=== PATIENT | male | born 1965 ===

== ENCOUNTER 2020-07-11 10:46 | Emergency (ER) | payer OTHER ==
[~2020-07-11] VITALS: Ht 182.9 cm; Wt 131.5 kg
--- NOTE | 2020-07-11 11:12 | NUR ---
ED Nurse Note: pt was lifting heavy box at work last friday and since then having lower back pain radiating to left hip. pt wishes to have a work not stating modified work
[2020-07-11 11:25] VITALS: BP 129/74
[2020-07-11] MEDS ORDERED: ROBAXIN-750750 MG PO (11:25)
--- NOTE | 2020-07-11 11:27 | NUR ---
ER DISCHARGE NOTE: Patient is cleared to be discharged per ERMD, pt is aox4, on room air, with stable vital signs. pt was given dc and prescription instructions, pt was able to verbalize understanding, pt id band removed. pt is able to ambulate with steady gait. pt took all belongings.
--- NOTE | 2020-07-11 11:29 | Emergency Room Report ---
History of Present Illness General Chief Complaint: Lower Back Pain or Injury Source: Patient Present Illness HPI Patient is a 55-year-old male denies any significant past medical history presents to the ER complaining of lower back spasm. 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 He states that since then he has had spasms to the right side of his back. He denies any fever or chills. He denies any history of IV drug use. He denies any focal weakness. He denies any inability to walk. He denies any changes to his bowel or bladder habits. Patient states that he takes some ibuprofen for the pain which improves it. Allergies: Coded Allergies: No Known Allergies (Unverified , 07/11/20) COVID-19 Screening Contact w/high risk pt: No Experienced COVID-19 symptoms?: No COVID-19 Testing performed [employer]: Yes COVID-19 Screening: Negative COVID-19 COVID-19 Testing Source: nasal Patient History Reviewed Nursing Documentation: PMH: Agreed; PSxH: Agreed Nursing Documentation-PMH Past Medical History: No History, Except For Review of Systems All Other Systems: negative except mentioned in HPI Physical Exam Vital Signs Date Time Temp Pulse Resp B/P (MAP) Pulse Ox O2 Delivery O2 Flow Rate FiO2 07/11/20 11:10 98.4 75 16 129/74 (92) 98 Room Air Sp02 EP Interpretation: reviewed, normal General Appearance: no apparent distress, alert, GCS 15, non-toxic Head: normocephalic, atraumatic Eyes: bilateral eye normal inspection, bilateral eye PERRL ENT: hearing grossly normal, normal pharynx, no angioedema, normal voice Neck: full range of motion, supple/symm/no masses Respiratory: chest non-tender, lungs clear, normal breath sounds, speaking full sentences Cardiovascular #1: regular rate, rhythm, no edema Gastrointestinal: normal bowel sounds, non tender, soft, non-distended, no guarding, no rebound Rectal: deferred, other - No saddle anesthesia Musculoskeletal: normal range of motion, no calf tenderness, moves extm spontaneously, other Neurologic: motor strength/tone normal, personalized living manager nurse III-XII nml as tested, oriented x3 Psychiatric: no suicidal/homicidal ideation Skin: no rash Lymphatic: no adenopathy Medical Decision Making Diagnostic Impression: Primary Impression: Muscle spasm ER Course Patient requesting work note to restrict heavy lifting as well as work hours. He is also requesting a muscle relaxant. I suspect the back pain that the patient is presenting with is non-emergent in etiology. Regarding the history, the patient denies gradual onset, trauma, fevers, night sweats, history of malignancy, pain worse at night, IVDU or refractory pain. Given these pertinent negatives in the history an emergent cause of the back pain is less likely. Also doubt cardiovascular cause of back pain such as aortic dissection or ruptured abdominal aortic aneurysm given patient with equal pulses in all 4 extremities with no diastolic murmur, or pulsatile abdominal mass. Epidural abscess considered unlikely given no fever or history of IVDU. The patient does not have history of malignancy so doubt metastasis to bone. Also doubt caudaequina syndrome since patient with no history of urinary/fecal incontinence or focal weakness or change in sensation. The patient was counseled that, though unlikely, the possibility of an emergent cause of back pain may still be present and that the patient should return immediately if symptoms persists or worsen. I believe the patient is stable for discharge to follow-up with their PMD for further workup and possible MRI. Last Vital Signs Date Time Temp Pulse Resp B/P (MAP) Pulse Ox O2 Delivery O2 Flow Rate FiO2 07/11/20 11:25 98.4 79 19 129/74 100 Room Air Disposition: HOME, SELF-CARE Condition: Stable Scripts Methocarbamol* (ROBAXIN-750*) 750 Mg Tablet 750 MG PO TID, #21 TAB 0 Refills Prov: Ade Mathur M.D. 07/11/20 [facility] Departure Forms: Return to Work Other Restrictions: No heavy lifting and limit work hours to 10 hours/day Patient Instructions: Back Pain, Adult Additional Instructions: The patient was provided with discharge instructions, notified to follow-up with a primary care doctor and or specialist in the next 24-48 hours, and to return to the ED if they have worsening of their symptoms. Please note that this report is being documented using [employer] technology. This can lead to erroneous entry secondary to incorrect interpretation by the dictating instrument. Ade Mathur M.D. Jul 11, 2020 11:29
== END 2020-07-11 11:25 | disposition home or self-care (01) ==
LOC: EMR 11:20
DX: M62.830 Muscle spasm of back (principal)
CPT/HCPCS: 99283